=== PATIENT | female | born 1970 | race Caucasian/White ===

== ENCOUNTER 2019-07-18 12:49 | Outpatient (CLI) | payer OTHER ==
--- NOTE | 2019-07-18 13:54 | CT ---
CT of theparanasal sinuses: 07/18/2019 COMPARISON:None available HISTORY:Facial pain, tinnitus TECHNIQUE: Serial axial CT imaging at2.5 mm intervals through the paranasal sinuses without contrast. Coronal and sagittal reformatted imaging obtained. Findings:The frontal sinus, sphenoid sinus, maxillary sinus, and ethmoid air cells demonstrate no sig nificant opacification on either side. Mastoid air cells are unremarkable bilaterally. There is postoperative hardware associated with a remote fracture of the anterior wall of right maxil rita sinus/right orbital floor. No significant nasal septal deviation. No acute fracture. There is a mildly prominent but nonenlarged level 2 lymph node on the right measuring 8 mm in short axis dimen sigifredo. Impression:Postoperative changes on the right. Paranasal sinuses are clear.
== END 2019-07-18 12:50 | disposition home or self-care (01) ==
LOC: CT 12:49
PROVIDERS: ATTEND Specialist
DX: R51 Headache (principal); Z87.81 Personal history of (healed) traumatic fracture; Z98.890 Other specified postprocedural states

== ENCOUNTER 2019-12-16 07:05 | Outpatient (CLI) | payer OTHER ==
[2019-12-17 14:13] LABS: SARS-CoV-2 MS2 Positive; SARS-CoV-2 N Gene Negative; SARS-CoV-2 S Gene Negative; SARS-CoV-2 by NAA Not Detected (NotDetected); SARS-CoV-2 orf1ab Negative
--- NOTE | 2019-12-17 15:35 | EKG ---
Test Reason : Blood Pressure : / mmHG Vent. Rate : 091 BPM Atrial Rate : 091 BPM P-R Int : 164 ms QRS Dur : 074 ms QT Int : 388 ms P-R-T Axes : 028 038 052 degrees QTc Int : 477 ms Normal sinus rhythm Cannot rule out Anterior infarct , age undetermined Abnormal ECG Confirmed by MILLIE GUTIERREZ ([id number]) on 12/17/2019 3:34:58 PM Referred By: AQUILES Confirmed By:MILLIE GUTIERREZ
== END 2019-12-16 07:06 | disposition home or self-care (01) ==
LOC: LABBT 07:05
PROVIDERS: ATTEND Specialist
DX: Z01.818 Encounter for other preprocedural examination (principal); Z11.59 Encounter for screening for other viral diseases; J34.3 Hypertrophy of nasal turbinates; J32.0 Chronic maxillary sinusitis; J32.1 Chronic frontal sinusitis; J32.2 Chronic ethmoidal sinusitis; J32.3 Chronic sphenoidal sinusitis
CPT/HCPCS: 84702; 85014; 87635; 93005; 93010; U0003

== ENCOUNTER 2019-12-19 06:53 | Day surgery (SDC) | payer OTHER ==
[2019-12-13 15:27] VITALS: BMI 25.9
[2019-12-19] MEDS ORDERED: AFRIN NASAL MIST 15 ML BOT ONE ×2 (08:01→08:31)
[2019-12-19] MEDS ORDERED: Midazolam HCl 2 mg/2 ml Vial ONE ×2 (08:28→08:35)
[2019-12-19] MEDS ORDERED: Lidocaine 1% w/Epinephrine 1:100K 20 ML VIAL ONE (08:31)
[2019-12-19] MEDS ORDERED: Fentanyl 100 MCG/2 ML VIAL ONE ×3 (08:35→10:53)
[2019-12-19] MEDS ORDERED: EPINEPHrine 1 MG/ML AMP ONE (09:25)
[2019-12-19] MEDS ORDERED: Ondansetron PF 4 MG/2 ML Vial ONE (10:53)
[2019-12-19] MEDS ORDERED: Dexamethasone 20 MG/5 ML VIAL ONE (10:53)
[2019-12-19] MEDS ORDERED: PROPOFOL 200 MG/20 ML VIAL ONE (10:53)
[2019-12-19] MEDS ORDERED: PHENYLEPHRINE-NS 100 MCG/ML 10 ML SYRINGE ONE (10:53)
[2019-12-19] MEDS ORDERED: Lidocaine 1% PF 5 ML VIAL ONE (10:53)
[2019-12-19] MEDS ORDERED: Hydrocodone-Acetamin 15 ML UDCUP ONE (12:22)
--- NOTE | 2019-12-20 05:16 | OP ---
DATE OF PROCEDURE: 12/19/2019 PREOPERATIVE DIAGNOSES: 1. Chronic sinusitis. 2. Facial pain. 3. Headache. 4. Recurrent sinusitis. 5. Hypertrophic inferior turbinates. POSTOPERATIVE DIAGNOSES: 1. Chronic sinusitis. 2. Facial pain. 3. Headache. 4. Recurrent sinusitis. 5. Hypertrophic inferior turbinates. PROCEDURE PERFORMED: 1. Bilateral nasal endoscopy with maxillary antrostomy with removal of tissue. 2. Bilateral nasal endoscopy with total ethmoidectomy. 3. Bilateral nasal endoscopy with frontal sinusotomy. 4. Bilateral nasal endoscopy with sphenoidotomy. 5. Bilateral nasal endoscopy with submucosal resection of inferior turbinates. DESCRIPTION OF PROCEDURE: BILATERAL NASAL ENDOSCOPY WITH MAXILLARY ANTROSTOMY WITH REMOVAL OF TISSUE: The uncinate was then identified and the extent of the uncinate was appreciated by out-fracturing the uncinate with the ball-tip probe. We then used the sickle blade to disarticulate the uncinate from the lateral nasal wall. This was then removed with straight biting and upbiting punches with the remaining shrouds of mucosa and bony septum removed with the micro-debrider. The natural os of the maxillary sinus was then identified and enlarged with the maxillary punches and back biting forceps. BILATERAL NASAL ENDOSCOPY WITH TOTAL ETHMOIDECTOMY: The anterior face of the ethmoid bulla was entered and with the micro-debrider, dissection continued posteriorly to the ground lamella. The limits of dissection included the insertion of the middle turbinate, medial orbital wall, and base of skull. We similarly identified the frontal recess and removed shrouds of bone and debris in that region to obtain patency into the agger nasi region and frontal recess. We then entered the ground lamella and its anteroinferior aspect and proceeded posteriorly, opening the posterior ethmoid air-cell system. Again, the limits of dissection included the base of skull and medial orbital wall. BILATERAL NASAL ENDOSCOPY WITH FRONTAL SINUSOTOMY: Following the ethmoidectomy, we then turned our attention to the frontal nasal recess. The agger nasi cells were addressed and the frontal recess was exposed. The natural opening to the frontal sinus was identified. At this point, any obstructing shrouds of mucosa and bony fragments were removed with a curved microdebrider. The wound was then examined and found to be free of any obstructing debris. We then turned our attention to the contralateral side and performed a similar procedure again under endoscopic visualization using a 45-degree scope. We were able to visualize the frontal recess. Obstructing shrouds of mucosa and bone were removed with a microdebrider. The natural os of frontal sinus was identified and enlarged and irrigated. At this point, the frontal sinusotomy was completed and we turned to the next area of concern. BILATERAL NASAL ENDOSCOPY WITH SPHENOIDOTOMY: The anterior face of the sphenoid was identified and entered in its extreme anteroinferior aspect. A sphenoid punch was then used to enlarge the sphenoidotomy and no injury to the optic nerve or internal carotid artery occurred. BILATERAL NASAL ENDOSCOPY WITH SUBMUCOSAL RESECTION OF INFERIOR TURBINATES: After consent was obtained, the patient was identified, brought to the operating room, and placed on the operating room table in the supine position. Consent was obtained, notifying the patient of the possibility of additional infections, bleeding, brain injury, and eye/orbital injury. The patient was placed on the operating room table, and general endotracheal anesthesia and intravenous access was obtained. The patient was then positioned, prepped and draped for endoscopic sinus surgery. Nasal preparation included trimming nasal vestibular hairs and spraying in topical Afrin. We then placed Afrin topical solution on nasal pledgets and strategically located them intranasally. The perinasal mucosa was injected with 1% lidocaine with 1:100,000 epinephrine in the submucoperichondrial plane of the septum, lateral nasal wall, and anterior to the uncinate. The patient was then prepped and draped in a sterile fashion and positioned for endoscopic sinus surgery. With the 0-degree endoscope, the patient underwent systematic nasal endoscopy. There were no suspicious internasal masses or lesions identified. We then focused our attention to the osteomeatal complex region under the middle turbinate. The inferior turbinates were visualized with a 0 degree endoscope and outfractured with a Grawn elevator. The inferior medial aspect was cauterized with the electrocautery. Hemostasis was obtained . After adequate airway was established, we turned our attention to the contralateral side and used a similar procedure. Again, a Grawn elevator was used to outfracture inferior turbinates under endoscopic visualization. With a suction cautery, the free inferior medial aspect was cauterized under direct visualization along the length of the inferior turbinate. At this point, we then turned our attention to the contralateral side and proceeded with endoscopic sinus surgery. At the completion of the case, Rice keel splints were placed in the ethmoid cavities after the ethmoidectomy. There were no complications. The patient tolerated the procedure well and was discharged to the recovery room in stable condition prior to return to the preoperative day stay with ultimate discharge home. Prescriptions for pain medication and antibiotics were provided. The patient received intramuscular Depo-Medrol during the case. Job ID: [id number]
== END 2019-12-19 13:00 | disposition home or self-care (01) ==
LOC: SDC 06:53 → EEVIPCON 12:30 → SDC 13:00
PROVIDERS: ATTEND Specialist
PROC: 09TU8ZZ Resection of Right Ethmoid Sinus, Via Natural or Artificial Opening Endoscopic (ICD-10-PCS; principal; 2019-12-19)
PROC: 09TV8ZZ Resection of Left Ethmoid Sinus, Via Natural or Artificial Opening Endoscopic (ICD-10-PCS; principal; 2019-12-19)
PROC: 09BQ8ZZ Excision of Right Maxillary Sinus, Via Natural or Artificial Opening Endoscopic (ICD-10-PCS; principal; 2019-12-19)
PROC: 099T8ZZ Drainage of Left Frontal Sinus, Via Natural or Artificial Opening Endoscopic (ICD-10-PCS; principal; 2019-12-19)
PROC: 099S8ZZ Drainage of Right Frontal Sinus, Via Natural or Artificial Opening Endoscopic (ICD-10-PCS; principal; 2019-12-19)
PROC: 099X8ZZ Drainage of Left Sphenoid Sinus, Via Natural or Artificial Opening Endoscopic (ICD-10-PCS; principal; 2019-12-19)
PROC: 09TL8ZZ Resection of Nasal Turbinate, Via Natural or Artificial Opening Endoscopic (ICD-10-PCS; principal; 2019-12-19)
PROC: 09BR8ZZ Excision of Left Maxillary Sinus, Via Natural or Artificial Opening Endoscopic (ICD-10-PCS; principal; 2019-12-19)
PROC: 099W8ZZ Drainage of Right Sphenoid Sinus, Via Natural or Artificial Opening Endoscopic (ICD-10-PCS; principal; 2019-12-19)
DX: J01.81 Other acute recurrent sinusitis (principal); J32.8 Other chronic sinusitis; J34.3 Hypertrophy of nasal turbinates; J45.909 Unspecified asthma, uncomplicated; K21.9 Gastro-esophageal reflux disease without esophagitis; M19.90 Unspecified osteoarthritis, unspecified site; F32.9 Major depressive disorder, single episode, unspecified; F90.9 Attention-deficit hyperactivity disorder, unspecified type; E11.9 Type 2 diabetes mellitus without complications; G43.909 Migraine, unspecified, not intractable, without status migrainosus; E03.9 Hypothyroidism, unspecified; F17.200 Nicotine dependence, unspecified, uncomplicated; F41.9 Anxiety disorder, unspecified; Z79.84 Long term (current) use of oral hypoglycemic drugs; Z79.899 Other long term (current) drug therapy
CPT/HCPCS: J0171; J1100; J2250; J2405; J2704; J3010

== ENCOUNTER 2020-09-01 08:19 | Day surgery (SDC) | payer OTHER ==
[2020-08-31 12:58] VITALS: BMI 25.2
[2020-09-01] MEDS ORDERED: Iopamidol-M 300 61% 15 ML VIAL ONE (09:23)
[2020-09-01 10:32] VITALS: BP 155/76; TEMP 98.7
== END 2020-09-01 11:37 | disposition home or self-care (01) ==
LOC: RAD 08:19
PROVIDERS: ATTEND Neurological Surgery
PROC: B02B1ZZ Computerized Tomography (CT Scan) of Spinal Cord using Low Osmolar Contrast (ICD-10-PCS; principal; 2020-09-01)
DX: M50.122 Cervical disc disorder at C5-C6 level with radiculopathy (principal); E04.1 Nontoxic single thyroid nodule; E11.9 Type 2 diabetes mellitus without complications; J45.909 Unspecified asthma, uncomplicated; D64.9 Anemia, unspecified; Z79.84 Long term (current) use of oral hypoglycemic drugs; Z79.899 Other long term (current) drug therapy; Z91.018 Allergy to other foods
CPT/HCPCS: 62302; 72040; 72126; 90471; 90732; G0009; Q9967

== ENCOUNTER 2023-04-21 14:56 | Outpatient (CLI) | payer OTHER | END 2023-04-21 14:57 | disposition home or self-care (01) | LOC: BICRAD 14:56 | PROVIDERS: ATTEND Student in an Organized Health Care Education/Training Program | DX: M54.50 Low back pain, unspecified (principal); M46.1 Sacroiliitis, not elsewhere classified; M47.816 Spondylosis without myelopathy or radiculopathy, lumbar region | CPT/HCPCS: 72110; 72202 ==